=== PATIENT | female | born 1960 | race Caucasian/White ===

== ENCOUNTER 2017-07-18 01:24 | Emergency (ER) | payer OTHER ==
[2017-07-18] MEDS ORDERED: IPRATROPIUM BROM 0.5MG/2.5ML ONE (02:24)
[2017-07-18] MEDS ORDERED: METHYLPREDNISOLONE 125 MG INJ ONE (02:24)
[2017-07-18] MEDS ORDERED: ALBUTEROL 2.5 MG/3 ML NEB SOL ONE (02:24)
[2017-07-18 03:22] LABS: Absolute Lymphocytes (CBC) 1.7 K/uL (0.7-4.9); Absolute Monocytes 0.8 K/uL (0.1-1.3); Absolute Neutrophil 3.8 K/uL (1.8-8.0); Basophils % 0.8 % (0-1.3); Hematocrit 36.9 % (36.0-45.0); Lymphocytes % 25.9 % (15.3-44.8); MCH 31.1 pg (27.0-35.0); MCV 91.1 fL (80-100); MPV 8.4 fL (7.6-11.3); Monocytes % 11.6 % (3.3-12.3); RBC Red Blood Cell Count 4.05 M/uL (3.86-4.86)
[2017-07-18 03:25] LABS: Protime INR 1.07
[2017-07-18 04:02] LABS: Bicarbonate 26 mEq/L (21-31); Glucose Level 111 mg/dL (65-120); Potassium 4.1 mEq/L (3.6-5.0); Sodium Level 134 mEq/L (135-145)
[2017-07-18 04:08] LABS: ALT/SGPT 25 IU/L (10-60); AST/SGOT 38 IU/L (10-42); Albumin 3.4 g/dL (3.2-5.5); Alkaline Phosphatase 168 IU/L (42-121); BUN Blood Urea Nitrogen 11 mg/dL (6-20); Bilirubin Direct < 0.1 mg/dL (0-0.2); Bilirubin Total 0.2 mg/dL (0.3-1.2); CKMB Creatine Kinase MB 0.4 ng/ml (0.3-4.0); Creatine Phosphokinase 42 IU/L (22-269); Magnesium 1.9 mg/dL (1.8-2.5); Protein, Total 7.2 g/dL (6.0-8.3)
--- NOTE | 2017-07-18 04:38 | EDPHYS ---
Physician Documentation [facility] Name: Marie Machado Age: 56 yrs Sex: Female : 1960 Arrival Date: 07/18/2017 Time: 01:24 Bed 19 Private MD: Garland Pittman E ED Physician Clint Liz HPI: 07/18 02:03 This 56 yrs old Female presents to ER via EMS with complaints of Shortness Of tw4 Breath. 02:03 The patient has shortness of breath at rest. Duration: The symptoms 3 day(s) ago, and tw4 became worse today, are continuous, and are unchanged since they started. The patient's shortness of breath is aggravated by exertion, is alleviated by nebulizer treatment. Associated signs and symptoms: Pertinent positives: productive cough. Severity of symptoms: At their worst the symptoms were moderate in the emergency department the symptoms are unchanged. The patient has experienced similar episodes in the past, chronically. 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 - Social history:: Smoking status: Patient/guardian denies using tobacco. - Ebola Screening: : No symptoms or risks identified at this time. ROS: 02:03 Constitutional: Negative for fever, chills, and weight loss, Cardiovascular: Negative tw4 for chest pain, palpitations, and edema, Abdomen/GI: Negative for abdominal pain, nausea, vomiting, diarrhea, and constipation. 02:03 Back: Negative for injury and pain, MS/Extremity: Negative for injury and deformity, Skin: Negative for injury, rash, and discoloration, Neuro: Negative for headache, weakness, numbness, tingling, and seizure. 02:03 Respiratory: Positive for cough, "sounds productive", dyspnea on exertion, shortness of breath, wheezing. Exam: 02:03 Constitutional: This is a well developed, well nourished patient who is awake, alert, tw4 and in no acute distress. Head/Face: Normocephalic, atraumatic. Chest/axilla: Normal chest wall appearance and motion. Nontender with no deformity. No lesions are appreciated. Cardiovascular: Regular rate and rhythm with a normal S1 and S2. No gallops, murmurs, or rubs. Normal PMI, no JVD. No pulse deficits. Abdomen/GI: Soft, non-tender, with normal bowel sounds. No distension or tympany. No guarding or rebound. No evidence of tenderness throughout. Back: No spinal tenderness. No costovertebral tenderness. Full range of motion. MS/ Extremity: Pulses equal, no cyanosis. Neurovascular intact. Full, normal range of motion. 02:03 Respiratory: the patient does not display signs of respiratory distress, Respirations: normal, Breath sounds: wheezing: that is mild, is heard in the left posterior upper lobe, right posterior upper lobe, left posterior lower lobe and right posterior middle lobe. Vital Signs: 01:25 BP 155 / 88; Pulse 94; Resp 20; Temp 100.0(O); Pulse Ox 98% ; Weight 63.5 kg; Height 4 aa1 ft. 4 in. (132.08 cm); Pain 8/10; 02:30 BP 116 / 90; Pulse 87; Resp 21; Pulse Ox 96% on R/A; ea 03:00 BP 114 / 83; Pulse 113; Resp 20 S; Temp 99.6(O); Pulse Ox 95% on R/A; ea 03:45 BP 126 / 78; Pulse 103; Resp 19 S; Pulse Ox 98% on R/A; ea 04:41 BP 116 / 69; Pulse 99; Resp 18; Pulse Ox 98% on R/A; ea 05:06 BP 118 / 70; Pulse 98; Resp 18; Temp 98.9(O); Pulse Ox 98% on R/A; ea 01:25 Body Mass Index 36.40 (63.50 kg, 132.08 cm) aa1 MDM: 01:29 Patient medically screened. tw4 04:41 Differential diagnosis: Anemia. Data reviewed: vital signs, nurses notes. Data tw4 interpreted: Pulse oximetry: Interpretation: normal. Test interpretation: by ED physician or midlevel provider: ECG. Counseling: I had a detailed discussion with the patient and/or guardian regarding: the historical points, exam findings, and any diagnostic results supporting the discharge/admit diagnosis. Special discussion: Based on the patient's history, exam and DX evaluation, there is no indication for emergent intervention or inpatient TX. It is understood by the patient/guardian that if the SXs persist or worsen they need to return immediately for re-evaluation. 07/18 01:40 Order name: Basic Metabolic Panel 07/18 01:40 Order name: BNP 07/18 01:40 Order name: CBC with Diff 07/18 01:40 Order name: Ckmb 07/18 01:40 Order name: CPK 07/18 01:40 Order name: LFT's 07/18 01:40 Order name: Magnesium 07/18 01:40 Order name: PT-INR 07/18 01:40 Order name: Ptt, Activated 07/18 01:40 Order name: Troponin (emerg Dept Use Only) 07/18 01:40 Order name: XRAY Chest (1 view) 07/18 01:40 Order name: EKG; Complete Time: 01:41 07/18 01:40 Order name: Cardiac monitoring; Complete Time: 02:58 07/18 01:40 Order name: EKG - Nurse/Tech; Complete Time: 02:58 07/18 01:40 Order name: IV Saline Lock; Complete Time: 02:28 07/18 01:40 Order name: Labs collected and sent; Complete Time: 02:58 07/18 01:40 Order name: O2 Per Protocol; Complete Time: 02:07/18 01:40 Order name: O2 Sat Monitoring; Complete Time: 02:28 Administered Medications: 02:20 Drug: Albuterol - atroVENT (3:1) (2.5 mg - 0.5 mg) 3 ml Route: Nebulizer; ea 03:00 Follow up: Response: No adverse reaction; Marked relief of symptoms ea 02:20 Drug: SOLU-Medrol 125 mg Route: IVP; Site: left antecubital; ea 03:00 Follow up: Response: No adverse reaction; Marked relief of symptoms ea 04:40 Drug: LevaQUIN 500 mg Route: PO; ea 05:00 Follow up: Response: No adverse reaction ea Disposition: 07/18/17 04:38 Discharged to Home. Impression: Chronic obstructive pulmonary disease with (acute) exacerbation. - Condition is Stable. - Discharge Instructions: Chronic Bronchitis, Chronic Obstructive Pulmonary Disease, Acute Bronchitis, [id number]. - Prescriptions for Levaquin 500 mg Oral Tablet - take 1 tablet by ORAL route once daily for 7 days; 7 tablet. Medrol (Surinder) 4 mg Oral Tablets, Dose Pack - take 1 tablet by ORAL route as directed - follow package instructions; 1 packet. - Medication Reconciliation Form, Thank You Letter, Antibiotic Education, Prescription Opioid Use form. - Follow up: Garland Pittman MD; When: As needed; Reason: Recheck today's complaints, Continuance of care, Re-evaluation by your physician. - Problem is new. - Symptoms have improved. Signatures: Dispatcher [employer] EDJovita Anton RN RN aa1 Milagros Mariscal RN Clint Duarte ea, MD MD tw4 Corrections: (The following items were deleted from the chart) 07:03 04:38 07/18/2017 04:38 Discharged to Home. Impression: Chronic obstructive pulmonary ea disease with (acute) exacerbation. Condition is Stable. Forms are Medication Reconciliation Form, Thank You Letter, Antibiotic Education, Prescription Opioid Use. Follow up: Garland Pittman; When: As needed; Reason: Recheck today's complaints, Continuance of care, Re-evaluation by your physician. Problem is new. Symptoms have improved. tw4
--- NOTE | 2017-07-18 04:38 | ER ---
Nurse's Notes [facility] Name: Marie Machado Age: 56 yrs Sex: Female : 1960 Arrival Date: 07/18/2017 Time: 01:24 Bed 19 Private MD: Garland Pittman E Diagnosis: Chronic obstructive pulmonary disease with (acute) exacerbation Presentation: 07/18 01:25 Presenting complaint: Patient states: she woke up just ARM [employer] with a sharp pain in her aa1 chest and felt as if she couldn't breathe. States, "I have COPD and I also have a hernia in my esophagus and it's burning really bad." Pt RA O2 sat upon EMS arrival to residence was 95% which increased to 100% after duoneb tx. Transition of care: patient was not received from another setting of care. Onset of symptoms was July 18, 2017. Risk Assessment: Do you want to hurt yourself or someone else? Patient reports no desire to harm self or others. Initial Sepsis Screen: Does the patient meet any 2 criteria? HR > 90 bpm. Does the patient have a suspected source of infection? No. Patient's initial sepsis screen is negative. Care prior to arrival: Medication(s) given: Albuterol Neb x 1, Atrovent Neb x 1, Med neb given. 01:25 Method Of Arrival: EMS: [facility] aa1 01:25 Acuity: CAROL 3 aa1 Triage Assessment: 01:30 General: Appears uncomfortable, Behavior is calm, cooperative. Respiratory: Reports ea shortness of breath Onset: The symptoms/episode began/occurred today, the patient has mild shortness of breath. 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 - Social history:: Smoking status: Patient/guardian denies using tobacco. - Ebola Screening: : No symptoms or risks identified at this time. Screenin:53 Abuse screen: Denies threats or abuse. Nutritional screening: No deficits noted. ea Tuberculosis screening: No symptoms or risk factors identified. Fall Risk None identified. Assessment: 01:50 General: Appears uncomfortable, Behavior is cooperative. Pain: Complains of pain in ea diaphragm Pain does not radiate. Pain currently is 8 out of 10 on a pain scale. Neuro: Level of Consciousness is awake, alert, obeys commands, Oriented to person, place, time, situation. Cardiovascular: Heart tones S1 S2 present Capillary refill < 3 seconds Patient's skin is warm and dry. Respiratory: Airway is patent Respiratory effort is even, unlabored, Respiratory pattern is regular, symmetrical, Breath sounds are coarse bilaterally. GI: No signs and/or symptoms were reported involving the gastrointestinal system. : No signs and/or symptoms were reported regarding the genitourinary system. EENT: No signs and/or symptoms were reported regarding the EENT system. Derm: Skin is pink, warm \\T\\ dry. Musculoskeletal: No signs and/or symptoms reported regarding the musculoskeletal system. 02:40 Cardiovascular: Rhythm is sinus tachycardia. ea 02:50 Reassessment: Patient and/or family updated on plan of care and expected duration. Pain ea level reassessed. Pt alert, oriented x 3. Respirations even and unlabored, chest expansions even and symmetrical, reports she is breathing easier. 03:55 Reassessment: Patient and/or family updated on plan of care and expected duration. Pain ea level reassessed. Patient is alert, oriented x 3, equal unlabored respirations, skin warm/dry/pink. 04:30 Reassessment: Patient and/or family updated on plan of care and expected duration. Pain ea level reassessed. Patient is alert, oriented x 3, equal unlabored respirations, skin warm/dry/pink. 05:08 Reassessment: Patient and/or family updated on plan of care and expected duration. Pain ea level reassessed. Patient is alert, oriented x 3, equal unlabored respirations, skin warm/dry/pink. Discharge instructions given to patient, verbalized the understanding of instructions. Pt awaiting for ride. 06:52 Reassessment: Patient and/or family updated on plan of care and expected duration. Pain ea level reassessed. Patient is alert, oriented x 3, equal unlabored respirations, skin warm/dry/pink. Vital Signs: 01:25 BP 155 / 88; Pulse 94; Resp 20; Temp 100.0(O); Pulse Ox 98% ; Weight 63.5 kg; Height 4 aa1 ft. 4 in. (132.08 cm); Pain 8/10; 02:30 BP 116 / 90; Pulse 87; Resp 21; Pulse Ox 96% on R/A; ea 03:00 BP 114 / 83; Pulse 113; Resp 20 S; Temp 99.6(O); Pulse Ox 95% on R/A; ea 03:45 BP 126 / 78; Pulse 103; Resp 19 S; Pulse Ox 98% on R/A; ea 04:41 BP 116 / 69; Pulse 99; Resp 18; Pulse Ox 98% on R/A; ea 05:06 BP 118 / 70; Pulse 98; Resp 18; Temp 98.9(O); Pulse Ox 98% on R/A; ea 01:25 Body Mass Index 36.40 (63.50 kg, 132.08 cm) aa1 ED Course: 01:24 Patient arrived in ED. am2 01:25 Garland Pittman MD is Private Physician. am2 01:29 Clint Liz MD is Attending Physician. tw4 01:42 Milagros Mariscal, RN is Primary Nurse. ea 01:50 Triage completed. aa1 01:54 Patient has correct armband on for positive identification. Bed in low position. Call ea light in reach. Side rails up X2. 01:54 Arm band placed on right wrist. Patient placed in an exam room, on a stretcher, on ea pulse oximetry. 01:59 X-ray completed. Portable x-ray completed in exam room. Patient tolerated procedure kw well. 02:00 XRAY Chest (1 view) In Process Unspecified. EDMS 02:15 Missed attempt(s): 22 gauge in right upper arm. Bleeding controlled, band aid applied, aa1 catheter tip intact. 02:18 Inserted saline lock: 22 gauge in left forearm, using aseptic technique. aa1 04:37 Garland Pittman MD is Referral Physician. tw4 04:58 No provider procedures requiring assistance completed. ea 05:08 IV discontinued, intact, bleeding controlled, No redness/swelling at site. Pressure ea dressing applied. Administered Medications: 02:20 Drug: Albuterol - atroVENT (3:1) (2.5 mg - 0.5 mg) 3 ml Route: Nebulizer; ea 03:00 Follow up: Response: No adverse reaction; Marked relief of symptoms ea 02:20 Drug: SOLU-Medrol 125 mg Route: IVP; Site: left antecubital; ea 03:00 Follow up: Response: No adverse reaction; Marked relief of symptoms ea 04:40 Drug: LevaQUIN 500 mg Route: PO; ea 05:00 Follow up: Response: No adverse reaction ea Outcome: 04:38 Discharge ordered by . tw4 05:07 Condition: improved ea 05:07 Discharge instructions given to patient, Instructed on discharge instructions, follow up and referral plans. medication usage, Demonstrated understanding of instructions, follow-up care, medications, Prescriptions given X 2. 07:02 Discharged to home ambulatory, with family. ea 07:03 Patient left the ED. ea Signatures: Dispatcher [employer] EDMS Jovita Perez, RN RN [email or web address] Deborah Fisher Amanda am2 Milagros Mariscal RN RN ea Wadley, Terrence, MD MD tw4 Corrections: (The following items were deleted from the chart) 04:41 03:00 BP 114 / 83; Pulse 113bpm; Resp 20bpm; Spontaneous; Pulse Ox 95% RA; ea ea 05:07 05:07 Discharged to home ea ea 05:10 05:08 Reassessment: Patient and/or family updated on plan of care and expected ea duration. Pain level reassessed. Patient is alert, oriented x 3, equal unlabored respirations, skin warm/dry/pink. Discharge instructions given to patient, verbalized the understanding of instructions. ea
[2017-07-18] MEDS ORDERED: levoFLOXacin 500 MG TAB ONE (04:45)
--- NOTE | 2017-07-18 09:15 | RAD REPORT ---
EXAM DESCRIPTION: RAD - Chest Single View - 07/18/2017 2:00 am CLINICAL HISTORY: Chest pain. COMPARISON: 12/30/2016 FINDINGS: Portable technique limits examination quality. The lungs are grossly clear. The heart is normal in size. No displaced fractures. IMPRESSION: No acute intrathoracic process suspected.
--- NOTE | 2017-07-18 13:42 | EKG ---
Test Date: 2017-07-18 Test Time: 02:48:45 Creative Project Manager: ANA MEASUREMENT RESULTS: Intervals: Rate: 108 IA: 112 QRSD: 68 QT: 308 QTc: 412 [place]: P: 24 IA: 112 QRS: 29 T: 82 INTERPRETIVE STATEMENTS: Sinus tachycardia Nonspecific ST and T wave abnormality Abnormal ECG Compared to ECG 12/30/2016 09:56:45 ST (T wave) deviation now present Sinus rhythm no longer present T-wave abnormality no longer present Electronically Signed On 07-18-17 13:40:47 CDT by Ej Doll
== END 2017-07-18 07:03 | disposition home or self-care (01) ==
LOC: ER 01:24
DX: J44.1 Chronic obstructive pulmonary disease with (acute) exacerbation (principal); Z88.6 Allergy status to analgesic agent; I10 Essential (primary) hypertension
CPT/HCPCS: 36415; 71045; 80048; 80076; 82550; 82553; 83735; 83880; 84484; 85025; 85610; 85730; 93005; 94640; 96374; 99285; J2930